=== PATIENT | female | born 1975 | race American Indian/Alaskan Native ===

== ENCOUNTER 2020-09-11 20:03 | Emergency (ER) | payer BC ==
[2020-09-11 21:20] LABS: Bilirubin,Urine NEG (Negative); Blood,Urine LG (Negative); Color,Urine Yellow (Yellow)
[2020-09-11 21:20] LABS: Basophils % (Auto) 0.5 % (0.0-1.8); Eosinophils # (Auto) 0.2 K/mm3 (0.0-0.4); Eosinophils % (Auto) 2.7 % (0.0-4.3); Hematocrit 34.8 % (30.3-42.9); Hemoglobin 11.9 gm/dl (10.1-14.3); Lymphocytes # (Auto) 2.2 K/mm3 (1.2-5.4); Lymphocytes % (Auto) 26.7 % (13.4-35.0); Mean Corpuscular HGB Conc 34 % (30-34); Mean Corpuscular Volume 90 fl (79-97); Monocytes # (Auto) 0.8 K/mm3 (0.0-0.8); Monocytes % (Auto) 10.2 % (0.0-7.3); Platelet Count 249 K/mm3 (140-440); Red Blood Count 3.87 M/mm3 (3.65-5.03); Red Cell Distribution Width 14.5 % (13.2-15.2)
[2020-09-11 21:24] LABS: RBC,Urine > 182.0 /HPF (0.0-6.0)
[2020-09-11 21:39] VITALS: BP 142/91
[2020-09-11 21:59] LABS: Alanine Aminotransferase 12 units/L (7-56); Albumin 4.1 g/dL (3.9-5); BUN/Creatinine Ratio 13; Blood Urea Nitrogen 10 mg/dL (7-17); Calcium 8.9 mg/dL (8.4-10.2); Hemolysis Index 8
--- NOTE | 2020-09-11 22:24 | Emergency Department Report ---
ED General Adult HPI - General Chief complaint: Abdominal Pain Stated complaint: ABDOMINAL PAIN,BLEEDING,CYCLE IRREGULAR Time Seen by Provider: 09/11/20 21:58 Source: patient Mode of arrival: Ambulatory Limitations: No Limitations - History of Present Illness Initial comments: 45-year-old female patient with history of hormone imbalance and tubo-ovarian abscess presents to emergency department with complaints of vaginal bleeding for approximately 1 month and lower abdominal pain starting last night. Patient states her pain is reminiscent of when she was last diagnosed with a tubo- ovarian abscess 2 years ago, requiring hospitalization. Patient is currently under the care of a medical education specialist and an migratory farm hand for her hormonal issues. She is not currently on contraceptive medication. She is sexually active with one partner. Tested negative for STDs earlier this month. Denies fever, chills, nausea, vomiting, diarrhea, constipation, back pain, vaginal discharge, syncope. Denies all other complaints at this time. - Related Data Allergies Allergy/AdvReac Type Severity Reaction Status Date / Time shellfish derived Allergy Swelling Verified 09/11/20 20:11 ED Review of Systems ROS: Stated complaint: ABDOMINAL PAIN,BLEEDING,CYCLE IRREGULAR Other details as noted in HPI Other: GENERAL: Negative for fever, chills, weight change, anorexia, fatigue. ENT: Negative for ear pain, difficulty hearing, sore throat, nasal congestion, epistaxis. CARDIOVASCULAR: Negative for chest pain, palpitations, lower extremity swelling. PULMONARY: Negative for cough, dyspnea, wheezing, orthopnea, cyanosis. GASTROINTESTINAL: Positive for abdominal pain. GENITOURINARY: Positive for vaginal bleeding. MUSCULOSKELETAL: Negative for joint pain, joint swelling, myalgias, back pain, neck pain. NEUROLOGICAL: Negative for headache, seizure, syncope, paresthesias, weakness. INTEGUMENTARY: Negative for erythema, rash, diaphoresis, laceration, ecchymosis. HEMATOLOGICAL: Negative for hemoptysis, hematemesis, hematochezia, hematuria. PSYCHIATRIC: Negative for hallucinations, suicidal ideation, homicidal ideation, anxiety, depression. ED Past Medical Hx - Past Medical History Additional medical history: ovarian cysts - Surgical History Hx Cholecystectomy: Yes Additional Surgical History: tonsillectomy - Social History Smoking Status: Never Smoker Substance Use Type: Alcohol ED Physical Exam - General Limitations: No Limitations - Other Other exam information: General: Awake and alert. No acute distress. Head: Atraumatic, normocephalic. Eyes: EOMI. Pupils are equal and round. Normal sclera and conjunctiva. ENT: Oral mucosa is moist. Normal pharyngeal exam. Neck: Supple. No lymphadenopathy. Pulmonary: No respiratory distress. Clear to auscultation bilaterally. Cardiac: Regular rate and rhythm. Pulses are palpable and equal bilaterally. No lower extremity cyanosis or edema. Skin: Warm and dry. No rashes. Abdomen: Soft, non-protuberant. Suprapubic tenderness without guarding, rigidity, or rebound. Bowel sounds are normal. No organomegaly or masses noted. Pelvic: Female support coordinator present. Normal external inspection. Cervical os is closed. There is no cervical motion tenderness. There is blood in the vaginal vault. No discharge. No adnexal tenderness or masses. There is uterine tenderness. Back: Normal alignment. No CVA tenderness. Extremities: Symmetrical. Full range of motion intact. Neurological: Alert and oriented, appropriately interactive, no focal deficits. Psych: Cooperative. Appropriate mood and affect. Speech is evenly metered. Thoughts are logically construed. ED Course Vital Signs 09/11/20 20:07 Temperature 98.1 F Pulse Rate 67 Respiratory 18 Rate Blood Pressure 142/91 O2 Sat by Pulse 100 Oximetry ED Medical Decision Making - Lab Data Result diagrams: 09/11/20 20:50 09/11/20 20:50 - Medical Decision Making Patient eloped from the emergency department prior to completion of diagnostic work-up. Critical care attestation.: If time is entered above; I have spent that time in minutes in the direct care of this critically ill patient, excluding procedure time. ED Disposition Clinical Impression: Eloped from emergency department Disposition: Z-[id number] ELOPED Is pt being admited?: No Does the pt Need Aspirin: No Condition: Undetermined Instructions: Abdominal Pain (ED)
[2020-09-12] MEDS ORDERED: KETOROLAC 30 MG/1 ML INJ IM ONE (00:13)
--- NOTE | 2020-09-12 01:24 | Ultrasound Report ---
TRANSVAGINAL PELVIC ULTRASOUND INDICATION / CLINICAL INFORMATION: Pelvic pain and hx tubo ovarian abscess. COMPARISON: None available. FINDINGS: The uterus measures approximately 8.3 x 5.3 x 5.7 cm. The endometrial stripe measures 1.4 cm AP. No e ndometrial fluid is seen. No fibroids are identified. The right ovary measures 2.3 x 1.7 x 2.2 cm and demonstrates normal blood flow on Doppler exam. The left ovary measures 5.0 x 3.9 x 3.6 cm and contains a mildly complex cyst measuring 3.5 cm in gre atest dimension. The cyst contains a thin internal septation and a small daughter cyst. No solid nodu lar component is seen. There is normal blood flow to the left ovary on Doppler exam. There is mild free fluid in the pelvis. No other abnormality is seen. IMPRESSION: 3.5 cm mildly complex left ovarian cyst and mild associated free fluid in the cul-de-sac are probably physiologic findings. Signer Name: Julio Drew MD Signed: 09/12/2020 1:20 AM Workstation Name: [id number]
== END 2020-09-12 01:20 | disposition left against medical advice (07) ==
LOC: ED 20:03
DX: N93.9 Abnormal uterine and vaginal bleeding, unspecified (principal); R10.9 Unspecified abdominal pain; Z91.013 Allergy to seafood; Z90.49 Acquired absence of other specified parts of digestive tract
CPT/HCPCS: 36415; 76830; 80053; 81001; 84702; 85025; 99283